=== PATIENT | female | born 1980 | race African-American/Black ===

== ENCOUNTER 2018-11-21 16:23 | Emergency (ER) | payer MEDICARE, MEDICAID ==
[2018-11-21] MEDS ORDERED: Bupivacaine 0.5% 10 ML VIAL ONE (17:28)
== END 2018-11-21 18:33 | disposition home or self-care (01) ==
LOC: ERS 16:23
DX: K08.89 Other specified disorders of teeth and supporting structures (principal); F17.210 Nicotine dependence, cigarettes, uncomplicated
CPT/HCPCS: 64400; J3490

== ENCOUNTER 2019-02-15 12:44 | Emergency (ER) | payer MEDICARE, MEDICAID ==
[2019-02-15] MEDS ORDERED: Bupivacaine 0.25% 10 ML VIAL ONE (14:42)
[2019-02-15] MEDS ORDERED: Naproxen 500 MG TAB ONE (14:53)
== END 2019-02-15 15:13 | disposition home or self-care (01) ==
LOC: ERS 12:44
DX: K02.9 Dental caries, unspecified (principal); G43.909 Migraine, unspecified, not intractable, without status migrainosus; F17.210 Nicotine dependence, cigarettes, uncomplicated
CPT/HCPCS: 64400; S0020

== ENCOUNTER 2020-02-11 17:16 | Emergency (ER) | payer MEDICARE, OTHER ==
[2020-02-11] MEDS ORDERED: Acetaminophen 500 MG TAB ONE (18:06)
[2020-02-11] MEDS ORDERED: Ketorolac Tromethamine 30 MG/ML VIAL ONE (18:06)
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
== END 2020-02-11 19:00 | disposition home or self-care (01) ==
LOC: ERS 17:16
DX: M54.2 Cervicalgia (principal); M79.601 Pain in right arm; R51 Headache; E04.9 Nontoxic goiter, unspecified; F32.9 Major depressive disorder, single episode, unspecified; F17.210 Nicotine dependence, cigarettes, uncomplicated; V89.2XXA Person injured in unspecified motor-vehicle accident, traffic, initial encounter
CPT/HCPCS: 70450; 72125; 96372; 99284; J1885

== ENCOUNTER 2020-02-21 18:55 | Emergency (ER) | payer MEDICARE, OTHER | END 2020-02-21 19:40 | disposition left against medical advice (07) | LOC: ERS 18:55 | DX: Z53.21 Procedure and treatment not carried out due to patient leaving prior to being seen by health care provider (principal) ==